=== PATIENT | male | born 1995 | race Two or more races ===

== ENCOUNTER 2022-06-23 15:25 | Emergency (ER) | payer OTHER ==
[2022-06-23 15:41] VITALS: BP 132/70; PULSE 107; RESP 18; TEMP 98.8; BMI 46.2
[2022-06-23 16:37] LABS: EOS % 1.9 % (0-4.5); HEMATOCRIT 42.3 % (35.4-49); HEMOGLOBIN 14.6 GM/dL (11.7-16.9); LYMPH % 22.5 % (8-40); MCH 27.9 pg (25.7-33.7); MCHC 34.4 g/dl (32.0-35.9); MEAN CELL VOLUME 81.1 fl (80-96); MEAN PLT VOLUME 9.3 fl (7.5-11.1); MONO % 5.4 % (3.8-10.2); NEUT % 69.2 % (42.8-82.8); PLATELET COUNT 214 10^3/uL (134-434); RBC 5.21 M/mm3 (4.00-5.60); RDW 13.2 % (11.9-15.9); WHITE BLOOD COUNT 14.5 K/mm3 (4.0-10.0)
[2022-06-23 16:54] LABS: CALCIUM 9.3 mg/dL (8.5-10.1)
[2022-06-23 16:55] LABS: BLOOD UREA NITROGEN 15.7 mg/dL (7-18)
[2022-06-23 16:58] LABS: CREATININE 0.8 mg/dL (0.55-1.3)
== END 2022-06-23 18:18 | disposition home or self-care (01) ==
LOC: JER 15:25
DX: L02.214 Cutaneous abscess of groin (principal); R10.30 Lower abdominal pain, unspecified; R19.09 Other intra-abdominal and pelvic swelling, mass and lump
CPT/HCPCS: 36415; 76856-TC; 80048; 85025; 99284-25